=== PATIENT | female | born 1955 | race Caucasian/White ===

== ENCOUNTER 2018-07-29 08:07 | Outpatient (CLI) | payer OTHER ==
--- NOTE | 2018-07-29 08:36 | BD ---
EXAM: DEXA bone density examination HISTORY: 62-year-old postmenopausal female for screening COMPARISON: DEXA study 2017 FINDINGS: L1--bone mineral density 0.859 g/sq cm; T score -1.2 L2--bone mineral density 0.913 g/sq cm; T score -1.0 L3--bone mineral density 1.012 g/sq cm; T score -0.7 L4--bone mineral density 1.039 g/sq cm; T score -0.2 Total L1-L4--bone mineral density 0.963 g/sq cm; T score -0.8 Left femoral neck--bone mineral density0.605; T score -2.2 Total proximal left femur--bone mineral density 0.741; T score -1.7 IMPRESSION: Osteopenia This patient has a 10 year WHO fracture risk of a major osteoporotic fracture of 9.9% and of a hip fracture of 1.5%.
== END 2018-07-29 08:08 | disposition home or self-care (01) ==
LOC: BICMAMMO 08:07
DX: Z13.820 Encounter for screening for osteoporosis (principal); M85.89 Other specified disorders of bone density and structure, multiple sites
CPT/HCPCS: 77080

== ENCOUNTER 2020-03-07 13:08 | Outpatient (CLI) | payer OTHER ==
--- NOTE | 2020-03-07 13:49 | BD ---
EXAM: Bone densitometry using DEXA HISTORY: 64 yo female. Screening for postmenopausal osteoporosis FINDINGS: L1--bone mineral density 0.822 g/sq cm; T score -1.5 ; Z score -0.1 L2--bone mineral density 0.928 g/sq cm; T score -0.9 ; Z score 0.7 L3--bone mineral density 0.985 g/sq cm; T score -0.9 ; Z score 0.8 L4--bone mineral density 1.072 g/sq cm; T score 0.1 ; Z score 1.9 Total L1-L4--bone mineral density 0.960 g/sq cm; T score -0.8 ; Z score 0.9 Left femoral neck--bone mineral density0.583; T score -2.4 ; Z score -1.0 Total proximal left femur--bone mineral density 0.774; T score -1.4 ; Z score -0.2 There has been an interval reduction of 0.4% in the BMD of the lumbar spine and a improvement of 4. 5% in the BMD of the proximal femur since the previous study of 07/29/2018. The 10 year fracture risk for a major osteoporotic fracture is 11% and for a hip fracture is 2.1%. IMPRESSION: Osteopenia
== END 2020-03-07 13:09 | disposition home or self-care (01) ==
LOC: BICMAMMO 13:08
PROVIDERS: ATTEND Obstetrics & Gynecology Gynecology
DX: M85.89 Other specified disorders of bone density and structure, multiple sites (principal)
CPT/HCPCS: 77080

== ENCOUNTER 2021-03-13 11:09 | Outpatient (CLI) | payer OTHER | END 2021-03-13 11:10 | disposition home or self-care (01) | LOC: BICMAMMO 11:09 | PROVIDERS: ATTEND Obstetrics & Gynecology Gynecology | DX: Z12.31 Encounter for screening mammogram for malignant neoplasm of breast (principal); Z91.89 Other specified personal risk factors, not elsewhere classified; Z80.3 Family history of malignant neoplasm of breast | CPT/HCPCS: 77063; 77067 ==

== ENCOUNTER 2021-12-25 19:30 | Outpatient (CLI) | payer MEDICARE, OTHER | END 2021-12-25 19:31 | disposition home or self-care (01) | LOC: SLEEPLAB 19:30 | PROVIDERS: ATTEND Internal Medicine | DX: G47.33 Obstructive sleep apnea (adult) (pediatric) (principal); R06.83 Snoring; G47.10 Hypersomnia, unspecified; G47.00 Insomnia, unspecified | CPT/HCPCS: 95810 ==

== ENCOUNTER 2022-01-15 09:53 | Outpatient (CLI) | payer MEDICARE | END 2022-01-15 09:54 | disposition home or self-care (01) | LOC: BICMAMMO 09:53 | PROVIDERS: ATTEND Obstetrics & Gynecology Gynecology | DX: Z13.820 Encounter for screening for osteoporosis (principal); M95.8 Other specified acquired deformities of musculoskeletal system; M85.88 Other specified disorders of bone density and structure, other site | CPT/HCPCS: 77080 ==

== ENCOUNTER 2022-03-05 19:30 | Outpatient (CLI) | payer MEDICARE | END 2022-03-05 19:31 | disposition home or self-care (01) | LOC: SLEEPLAB 19:30 | PROVIDERS: ATTEND Internal Medicine | DX: G47.33 Obstructive sleep apnea (adult) (pediatric) (principal); R06.83 Snoring | CPT/HCPCS: 95811 ==

== ENCOUNTER 2022-03-15 09:47 | Outpatient (CLI) | payer MEDICARE | END 2022-03-15 09:48 | disposition home or self-care (01) | LOC: BICMAMMO 09:47 | PROVIDERS: ATTEND Obstetrics & Gynecology Gynecology | DX: Z12.31 Encounter for screening mammogram for malignant neoplasm of breast (principal); Z80.3 Family history of malignant neoplasm of breast; Z91.89 Other specified personal risk factors, not elsewhere classified | CPT/HCPCS: 77063; 77067 ==

== ENCOUNTER 2023-04-02 13:42 | Outpatient (CLI) | payer MEDICARE | END 2023-04-02 13:43 | disposition home or self-care (01) | LOC: BICMAMMO 13:42 | PROVIDERS: ATTEND Obstetrics & Gynecology Gynecology | DX: Z12.31 Encounter for screening mammogram for malignant neoplasm of breast (principal); Z80.3 Family history of malignant neoplasm of breast; Z91.89 Other specified personal risk factors, not elsewhere classified | CPT/HCPCS: 77063; 77067 ==